=== PATIENT | male | born 1970 | race Caucasian/White ===

== ENCOUNTER 2019-10-16 11:40 | Inpatient (IN) | payer OTHER ==
[~2019-10-16] VITALS: Ht 170.2 cm; Wt 85.6 kg
[2019-10-16] MEDS ORDERED: ATOR40TA28 PO (12:00)
[2019-10-16] MEDS ORDERED: FURO80 PO (12:00)
[2019-10-16] MEDS ORDERED: FentaNYL CITRATE-PF 100 MCG/2 ML VIAL IVP ONE (12:00)
[2019-10-16] MEDS ORDERED: TERA2CAP10 PO (12:00)
[2019-10-16] MEDS ORDERED: MIDAZOLAM HCL 2 MG/2 ML VIAL IVP ONE (12:00)
[2019-10-16] MEDS ORDERED: CHOL100018 PO (12:00)
[2019-10-16 12:08] LABS: GLUCOSE,POINT OF CARE 237 MG/DL (70-110)
[2019-10-16 12:41] LABS: BASOPHILS % (AUTO) 0.9 % (0.0-2.0); EOSINOPHILS % (AUTO) 3.9 % (1.0-6.0); HEMATOCRIT 32.3 % (41-53); HEMOGLOBIN 10.9 g/dL (13.5-17.5); LYMPHOCYTES # (AUTO) 1.3 K/uL (1.0-4.8); LYMPHOCYTES % (AUTO) 17.8 % (22.0-44.0); MEAN CORPUSCULAR HEMOGLOBIN 29.4 pg (26.0-34.0); MEAN CORPUSCULAR HGB CONC 33.8 G/dL (31.0-37.0); MEAN CORPUSCULAR VOLUME 87 fL (80-100); MONOCYTES # (AUTO) 0.6 K/uL (0.1-1.0); MONOCYTES % (AUTO) 8.3 % (2.0-9.0); NEUTROPHILS # (AUTO) 5.1 K/uL (1.8-7.7); NEUTROPHILS % (AUTO) 69.1 % (40.0-70.0); PLATELET COUNT (AUTO) 404 K/uL (150-450); RED BLOOD CELL COUNT(AUTO) 3.71 MIL/uL (4.50-5.90); RED CELL DISTRIBUTION WIDTH 13.4 % (11.5-14.5)
[2019-10-16 12:50] LABS: APPEARANCE,URINE CLEAR (CLEAR); BILIRUBIN,URINE NEGATIVE (NEGATIVE); GLUCOSE, URINE (UA) 100 mg/dL (NEGATIVE); KETONES,URINE NEGATIVE (NEGATIVE); LEUKOCYTE ESTERASE ,URINE NEGATIVE (NEGATIVE); NITRATE,URINE NEGATIVE (NEGATIVE); OCCULT BLOOD,URINE TRACE (NEGATIVE); PROTEIN,URINE SEE CONFIRM (NEGATIVE); UROBILINOGEN,URINE 0.2 mg/dL (<=1.0)
[2019-10-16] MEDS ORDERED: ACETAMINOPHEN 325 MG TABLET PO PRN (13:00)
[2019-10-16] MEDS ORDERED: DEXTROSE 50%-WATER 25 GM/50 ML SYRINGE IVP PRN (13:00)
[2019-10-16] MEDS ORDERED: BISACODYL 10 MG RECTAL RECTAL SUPPOSITORY PR PRN (13:00)
[2019-10-16 13:03] LABS: ALBUMIN 3.4 g/dL (3.4-5.0); BILIRUBIN,TOTAL 0.5 mg/dL (0.1-1.0); CALCIUM, TOTAL 8.6 mg/dL (8.8-10.5); CREATININE 7.49 mg/dL (0.60-1.30); POTASSIUM 4.3 mmol/L (3.5-5.1); TOTAL PROTEIN, SERUM 7.9 g/dL (6.4-8.2)
[2019-10-16 13:07] LABS: BACTERIA,URINE None Seen /HPF (None Seen); RBC,URINE None Seen /HPF (0-2); WBC,URINE None Seen /HPF (0-5)
[2019-10-16 13:08] LABS: SULFOSALICYLIC ACID,URINE 3+ (Negative)
[2019-10-16] MEDS: INSULIN LISPRO 100 UNITS/ML SQ PRN ×2 (13:37→20:19)
[2019-10-16 13:38] LABS: GLUCOSE,POINT OF CARE 175 MG/DL (70-110)
[2019-10-16] MEDS: CloNIDine HCL 0.1 MG TABLET PO PRN ×2 (13:38→23:44)
[2019-10-16] MEDS: VITAMIN B COMP/VIT C/FOLIC ACID CAPSULE PO SCH (14:41)
[2019-10-16 16:23] VITALS: BP 182/98
[2019-10-16 17:38] VITALS: BP 164/92
[2019-10-16 17:48] VITALS: BP 162/92
[2019-10-16 17:53] LABS: GLUCOMETER DEV NAME(LOC) 4E.2; GLUCOSE,POINT OF CARE 108 MG/DL (70-110)
[2019-10-16 19:38] VITALS: BP 176/95
[2019-10-16] MEDS: DOCUSATE SODIUM 100 MG CAPSULE PO SCH (20:17)
[2019-10-16] MEDS: HEPARIN SODIUM,PORCINE 5,000 UNITS/ML VIAL SQ SCH (20:17)
[2019-10-16 23:41] VITALS: BP 184/93
[2019-10-17 00:26] LABS: GLUCOMETER DEV NAME(LOC) 6N.1; GLUCOSE,POINT OF CARE 154 MG/DL (70-110)
[2019-10-17 05:42] VITALS: BP 170/86
[2019-10-17 07:56] VITALS: BP 143/91
[2019-10-17] MEDS: VITAMIN B COMP/VIT C/FOLIC ACID CAPSULE PO SCH (08:19)
[2019-10-17] MEDS: HEPARIN SODIUM,PORCINE 5,000 UNITS/ML VIAL SQ SCH ×2 (08:20→20:36)
[2019-10-17] MEDS: ASPIRIN 81 MG CHEWABLE TABLET PO SCH (08:20)
[2019-10-17] MEDS: FAMOTIDINE 20 MG TABLET PO SCH (08:20)
[2019-10-17] MEDS: DOCUSATE SODIUM 100 MG CAPSULE PO SCH ×2 (08:24→20:36)
[2019-10-17] MEDS: AmLODIPine BESYLATE 10 MG TABLET PO SCH (11:21)
[2019-10-17] MEDS: INSULIN LISPRO 100 UNITS/ML SQ PRN ×3 (11:26→20:39)
[2019-10-17 12:18] LABS: GLUCOMETER DEV NAME(LOC) 4E.2; GLUCOSE,POINT OF CARE 122 MG/DL (70-110)
[2019-10-17 13:07] LABS: GLUCOMETER DEV NAME(LOC) 6N.1; GLUCOSE,POINT OF CARE 215 MG/DL (70-110)
[2019-10-17 13:54] VITALS: BP 144/78
[2019-10-17 16:00] VITALS: BP 134/75
[2019-10-17 19:30] VITALS: BP 142/80
[2019-10-17 20:35] LABS: GLUCOMETER DEV NAME(LOC) 6N.1; GLUCOSE,POINT OF CARE 172 MG/DL (70-110)
[2019-10-17 21:05] LABS: CREATININE,URINE 62.9 mg/dL (30.0-125.0)
[2019-10-17 21:18] LABS: CREATININE,SERUM FOR CRCL 7.49 mg/dL (0.60-1.30)
[2019-10-17 22:15] LABS: GLUCOMETER DEV NAME(LOC) 4E.2; GLUCOSE,POINT OF CARE 172 MG/DL (70-110)
[2019-10-17 23:25] VITALS: BP 139/75
[2019-10-18 04:55] VITALS: BP 144/81
[2019-10-18 07:49] LABS: % IRON SATURATION 67.8 % (30-44)
[2019-10-18 07:52] VITALS: BP 150/82
[2019-10-18 08:00] LABS: CALCIUM, TOTAL 8.3 mg/dL (8.8-10.5); CREATININE 7.44 mg/dL (0.60-1.30)
[2019-10-18] MEDS: ASPIRIN 81 MG CHEWABLE TABLET PO SCH (08:25)
[2019-10-18] MEDS: DOCUSATE SODIUM 100 MG CAPSULE PO SCH ×2 (08:25→19:44)
[2019-10-18] MEDS: HEPARIN SODIUM,PORCINE 5,000 UNITS/ML VIAL SQ SCH (08:25)
[2019-10-18] MEDS: AmLODIPine BESYLATE 10 MG TABLET PO SCH (08:25)
[2019-10-18] MEDS: FAMOTIDINE 20 MG TABLET PO SCH (08:25)
[2019-10-18] MEDS: VITAMIN B COMP/VIT C/FOLIC ACID CAPSULE PO SCH (08:25)
[2019-10-18] MEDS: INSULIN LISPRO 100 UNITS/ML SQ PRN ×2 (11:23→20:53)
[2019-10-18 11:36] LABS: GLUCOMETER DEV NAME(LOC) 4E.2; GLUCOSE,POINT OF CARE 118 MG/DL (70-110)
[2019-10-18 11:37] LABS: GLUCOMETER DEV NAME(LOC) 4E.2; GLUCOSE,POINT OF CARE 185 MG/DL (70-110)
[2019-10-18 12:00] VITALS: BP 139/80
[2019-10-18 18:57] LABS: GLUCOMETER DEV NAME(LOC) 6N.1; GLUCOSE,POINT OF CARE 140 MG/DL (70-110)
[2019-10-18] MEDS: CloNIDine HCL 0.1 MG TABLET PO PRN (19:44)
[2019-10-18 20:10] VITALS: BP 174/80
[2019-10-18 23:35] VITALS: BP 150/79
[2019-10-19 04:00] VITALS: BP 134/75
[2019-10-19 06:02] LABS: GLUCOMETER DEV NAME(LOC) 6N.1; GLUCOSE,POINT OF CARE 198 MG/DL (70-110)
[2019-10-19 07:45] VITALS: BP 157/83
[2019-10-19 07:49] LABS: GLUCOMETER DEV NAME(LOC) 6N.1; GLUCOSE,POINT OF CARE 138 MG/DL (70-110)
[2019-10-19] MEDS: FAMOTIDINE 20 MG TABLET PO SCH (09:00)
[2019-10-19] MEDS: DOCUSATE SODIUM 100 MG CAPSULE PO SCH ×2 (09:00→20:33)
[2019-10-19] MEDS: VITAMIN B COMP/VIT C/FOLIC ACID CAPSULE PO SCH (09:00)
[2019-10-19] MEDS ORDERED: HEPARIN SODIUM 1000 UNITS/NS 500 ML ONE (10:22)
[2019-10-19] MEDS ORDERED: LIDOCAINE/PF 1% 30 ML VIAL ONE (10:22)
[2019-10-19] MEDS ORDERED: HEPARIN SODIUM,PORCINE 1,000 UNITS/ML 10 ML VIAL ONE (10:22)
[2019-10-19] MEDS: AmLODIPine BESYLATE 10 MG TABLET PO SCH (10:26)
[2019-10-19] MEDS ORDERED: FLUMAZENIL 0.1 MG/ML 5 ML VIAL IVP ONE (10:38)
[2019-10-19] MEDS ORDERED: FentaNYL CITRATE-PF 100 MCG/2 ML VIAL ONE (10:38)
[2019-10-19] MEDS ORDERED: MIDAZOLAM HCL 2 MG/2 ML VIAL ONE (10:38)
[2019-10-19] MEDS ORDERED: NALOXONE HCL 0.4 MG/ML VIAL ONE (10:38)
[2019-10-19] MEDS ORDERED: MIDAZOLAM HCL 2 MG/2 ML VIAL IVP ONE (11:21)
[2019-10-19] MEDS ORDERED: FentaNYL CITRATE-PF 100 MCG/2 ML VIAL IVP ONE (11:22)
[2019-10-19] MEDS ORDERED: SODIUM CHLORIDE 0.9% 250 ML IV ONE (11:40)
[2019-10-19 13:38] LABS: GLUCOMETER DEV NAME(LOC) 4E.2; GLUCOSE,POINT OF CARE 138 MG/DL (70-110)
[2019-10-19 15:41] VITALS: BP 144/84
[2019-10-19 18:58] LABS: GLUCOMETER DEV NAME(LOC) 5S.1; GLUCOSE,POINT OF CARE 137 MG/DL (70-110)
[2019-10-19 20:22] VITALS: BP 157/90
[2019-10-19] MEDS: INSULIN LISPRO 100 UNITS/ML SQ PRN (20:32)
[2019-10-20 00:13] VITALS: BP 153/78
[2019-10-20 05:32] VITALS: BP 139/72
[2019-10-20 06:29] LABS: BAND NEUTROPHILS % (MANUAL) 0 % (0-5)
[2019-10-20 06:34] LABS: HEMATOCRIT 26.8 % (41-53); HEMOGLOBIN 9.3 g/dL (13.5-17.5); MEAN CORPUSCULAR HEMOGLOBIN 29.9 pg (26.0-34.0); MEAN CORPUSCULAR HGB CONC 34.8 G/dL (31.0-37.0); MEAN CORPUSCULAR VOLUME 86 fL (80-100); PLATELET COUNT (AUTO) 306 K/uL (150-450); RED BLOOD CELL COUNT(AUTO) 3.12 MIL/uL (4.50-5.90); RED CELL DISTRIBUTION WIDTH 12.7 % (11.5-14.5)
[2019-10-20 07:01] LABS: CALCIUM, TOTAL 8.2 mg/dL (8.8-10.5); CREATININE 6.12 mg/dL (0.60-1.30); MAGNESIUM 2.5 mg/dL (1.80-2.40); PHOSPHORUS 5.1 mg/dL (2.5-4.9)
[2019-10-20 07:31] VITALS: BP 148/72
[2019-10-20] MEDS ORDERED: LIDOCAINE/PF 1% 30 ML VIAL ONE (07:52)
[2019-10-20] MEDS ORDERED: SODIUM CHLORIDE 0.9% 0 ML IV ONE (07:58)
[2019-10-20] MEDS ORDERED: HEPARIN SODIUM,PORCINE 5,000 UNITS/ML VIAL ONE ×2 (07:58→08:49)
[2019-10-20] MEDS ORDERED: SODIUM CHLORIDE 0.9% 1,000 ML ONE (08:04)
[2019-10-20] MEDS ORDERED: SODIUM CHLORIDE 0.9% 1,000 ML IV ONE (08:15)
[2019-10-20 08:39] LABS: GLUCOMETER DEV NAME(LOC) 5S.1; GLUCOSE,POINT OF CARE 116 MG/DL (70-110)
[2019-10-20 08:39] LABS: GLUCOMETER DEV NAME(LOC) 5S.1; GLUCOSE,POINT OF CARE 235 MG/DL (70-110)
[2019-10-20 08:44] LABS: LYMPHOCYTES % (MANUAL) 30 % (22-44); MONOCYTES % (MANUAL) 4 % (2-9); SEGMENTED NEUTROPHILS % 66 % (40-70)
[2019-10-20] MEDS ORDERED: PROPOFOL 1000 MG/ISO-OSM 100 ML IV ONE (08:49)
[2019-10-20] MEDS ORDERED: HYDROmorphone 2 MG/ML SYRINGE IVP PRN (11:45)
[2019-10-20] MEDS ORDERED: MEPERIDINE-PF 25 MG/ML VIAL IVP PRN (11:45)
[2019-10-20] MEDS ORDERED: FentaNYL CITRATE-PF 100 MCG/2 ML VIAL IVP PRN (11:45)
[2019-10-20] MEDS ORDERED: HEPARIN SODIUM,PORCINE 1,000 UNITS/ML VIAL IVP ONE (12:00)
[2019-10-20] MEDS ORDERED: MEPERIDINE-PF 25 MG/ML VIAL ONE (12:05)
[2019-10-20] MEDS: VITAMIN B COMP/VIT C/FOLIC ACID CAPSULE PO SCH (13:26)
[2019-10-20] MEDS: DOCUSATE SODIUM 100 MG CAPSULE PO SCH ×2 (13:26→20:26)
[2019-10-20] MEDS: FAMOTIDINE 20 MG TABLET PO SCH (13:26)
[2019-10-20] MEDS: AmLODIPine BESYLATE 10 MG TABLET PO SCH (13:26)
[2019-10-20 14:30] VITALS: BP 132/70
[2019-10-20 15:29] VITALS: BP 141/74
[2019-10-20 15:32] LABS: GLUCOMETER DEV NAME(LOC) 5S.1; GLUCOSE,POINT OF CARE 137 MG/DL (70-110)
[2019-10-20] MEDS ORDERED: HEPARIN SODIUM,PORCINE 1,000 UNITS/ML VIAL ONE (17:37)
[2019-10-20 19:16] LABS: GLUCOMETER DEV NAME(LOC) 5S.1; GLUCOSE,POINT OF CARE 134 MG/DL (70-110)
[2019-10-20] MEDS: OXYGEN THERAPY IH SCH (20:00)
[2019-10-20 20:20] VITALS: BP 156/83
[2019-10-21 00:48] VITALS: BP 136/64
[2019-10-21 04:36] VITALS: BP 101/54
[2019-10-21 05:17] LABS: GLUCOMETER DEV NAME(LOC) 5N.1; GLUCOSE,POINT OF CARE 129 MG/DL (70-110)
[2019-10-21] MEDS: INSULIN LISPRO 100 UNITS/ML SQ PRN ×3 (05:49→21:41)
[2019-10-21 06:29] LABS: GLUCOMETER DEV NAME(LOC) 5N.1; GLUCOSE,POINT OF CARE 151 MG/DL (70-110)
[2019-10-21 07:50] VITALS: BP 130/55
[2019-10-21] MEDS: OXYGEN THERAPY IH SCH ×2 (08:00→20:00)
[2019-10-21] MEDS ORDERED: EPOETIN ALFA 10,000 UNITS/ML 2 ML VIAL SQ SCH (09:00)
[2019-10-21 11:30] VITALS: BP 142/79
[2019-10-21 12:35] LABS: GLUCOMETER DEV NAME(LOC) 5S.1; GLUCOSE,POINT OF CARE 101 MG/DL (70-110)
[2019-10-21 15:56] VITALS: BP 132/73
[2019-10-21] MEDS: FAMOTIDINE 20 MG TABLET PO SCH (16:31)
[2019-10-21] MEDS: AmLODIPine BESYLATE 10 MG TABLET PO SCH (16:31)
[2019-10-21] MEDS: DOCUSATE SODIUM 100 MG CAPSULE PO SCH ×2 (16:32→21:39)
[2019-10-21] MEDS: VITAMIN B COMP/VIT C/FOLIC ACID CAPSULE PO SCH (16:32)
[2019-10-21] MEDS ORDERED: HEPARIN SODIUM,PORCINE 1,000 UNITS/ML VIAL IVP ONE (17:54)
[2019-10-21 19:45] VITALS: BP 146/70
[2019-10-21 21:35] LABS: GLUCOMETER DEV NAME(LOC) 5S.1; GLUCOSE,POINT OF CARE 205 MG/DL (70-110)
[2019-10-22] VITALS: BP 139/66
[2019-10-22 04:33] VITALS: BP 127/64
[2019-10-22 07:08] VITALS: BP 147/69
[2019-10-22] MEDS: OXYGEN THERAPY IH SCH (08:00)
[2019-10-22] MEDS: AmLODIPine BESYLATE 10 MG TABLET PO SCH (08:14)
[2019-10-22] MEDS: VITAMIN B COMP/VIT C/FOLIC ACID CAPSULE PO SCH (08:14)
[2019-10-22] MEDS: FAMOTIDINE 20 MG TABLET PO SCH (08:14)
[2019-10-22] MEDS: DOCUSATE SODIUM 100 MG CAPSULE PO SCH (08:14)
[2019-10-22] MEDS ORDERED: AMLO10TA7 PO (09:47)
[2019-10-22 11:25] LABS: GLUCOMETER DEV NAME(LOC) 5N.1; GLUCOSE,POINT OF CARE 128 MG/DL (70-110)
[2019-10-22 12:04] VITALS: BP 132/70
[2019-10-22] MEDS: INSULIN LISPRO 100 UNITS/ML SQ PRN (13:25)
[2019-10-22 15:46] VITALS: BP 128/72
[2019-10-23 00:56] LABS: GLUCOMETER DEV NAME(LOC) 5N.2; GLUCOSE,POINT OF CARE 223 MG/DL (70-110)
== END 2019-10-22 17:55 | disposition home or self-care (01) | DRG 444 ==
LOC: EMS 11:42 → 4E 15:03 → 5N 10-19 16:04
PROVIDERS: ADMIT Internal Medicine; ATTEND Internal Medicine
PROC: 5A1D70Z Performance of Urinary Filtration, Intermittent, Less than 6 Hours Per Day (ICD-10-PCS; 2019-10-19)
PROC: 0JH63XZ Insertion of Tunneled Vascular Access Device into Chest Subcutaneous Tissue and Fascia, Percutaneous Approach (ICD-10-PCS; 2019-10-19)
PROC: 05HM33Z Insertion of Infusion Device into Right Internal Jugular Vein, Percutaneous Approach (ICD-10-PCS; 2019-10-19)
PROC: B543ZZA Ultrasonography of Right Jugular Veins, Guidance (ICD-10-PCS; 2019-10-19)
PROC: 5A1D70Z Performance of Urinary Filtration, Intermittent, Less than 6 Hours Per Day (ICD-10-PCS; 2019-10-20)
PROC: 03180ZF Bypass Left Brachial Artery to Lower Arm Vein, Open Approach (ICD-10-PCS; principal; 2019-10-20 09:00)
PROC: 5A1D70Z Performance of Urinary Filtration, Intermittent, Less than 6 Hours Per Day (ICD-10-PCS; 2019-10-21)
DX: I12.0 Hypertensive chronic kidney disease with stage 5 chronic kidney disease or end stage renal disease (principal); N17.9 Acute kidney failure, unspecified; E11.22 Type 2 diabetes mellitus with diabetic chronic kidney disease; E11.40 Type 2 diabetes mellitus with diabetic neuropathy, unspecified; N25.81 Secondary hyperparathyroidism of renal origin; E11.319 Type 2 diabetes mellitus with unspecified diabetic retinopathy without macular edema; N18.6 End stage renal disease; E78.5 Hyperlipidemia, unspecified; D63.1 Anemia in chronic kidney disease; E78.00 Pure hypercholesterolemia, unspecified; Z99.2 Dependence on renal dialysis; Z83.3 Family history of diabetes mellitus; Z82.49 Family history of ischemic heart disease and other diseases of the circulatory system; Z79.4 Long term (current) use of insulin
CPT/HCPCS: 36245; 36561; 76770; 76937; 81050; 82043; 82575; 82728; 83540; 83550; 83735; 83970; 84100; 84156; 85007; 87340; 93005; 93931; 93970; G0378; J0690; J0885; J1644; J1815; J2175; J2250; J2310; J2704; J3010; J3490; J7030; J7050